=== PATIENT | male | born 1950 | race Caucasian/White ===

== ENCOUNTER → 2020-10-02 14:01 | Outpatient (CLI) | payer MEDICARE, SELFPAY ==
--- NOTE | 2020-10-02 14:46 | DI.CT.S_ITS ---
PROCEDURE: CT UE RT WO CON INDICATIONS: Primary osteoarthritis, right shoulder TECHNIQUE: Noncontrast 1-1.5 mm thick sections acquired from the acromioclavicular joint to the inferior scapula, with coronal and sagittal reformatting. COMPARISON: None. FINDINGS: Image quality: Excellent. Bones: Mild to moderate acromioclavicular joint osteoarthritic changes are seen with joint space narrowing, subchondral sclerosis and cyst formation and small marginal osteophyte formation. Moderate to severe glenohumeral joint osteoarthritis is seen with joint space narrowing, prominent marginal osteophyte formation, subchondral sclerosis and cyst formation. There is no shoulder fracture or dislocation. No suspicious intraosseous lesion. Prominent subcortical cyst formations are noted involving greater tuberosity of humeral head near rotator cuff tendon insertion. Visualized portion of right upper to mid ribs are intact. Soft tissues: There is no gross full-thickness rotator cuff tendon rupture. No significant joint effusion. Mild supraspinatus muscle atrophy is likely present. No abnormal soft tissue calcification is seen. Visualized right lung field is clear. IMPRESSION: 1. Moderate to severe glenohumeral joint osteoarthritis and mild to moderate acromioclavicular joint osteoarthritis. No fracture or dislocation. Prominent subcortical cyst formation in posterior lateral portion of humeral head near rotator cuff tendon insertion. 2. No full-thickness rotator cuff tendon rupture. Very mild supraspinatus muscle atrophy. No abnormal soft tissue calcifications. No significant joint effusion. Dictated by: Ernesto Shah M.D. on 10/02/2020 at 17:21 Approved by: Ernesto Shah M.D. on 10/02/2020 at 17:24
== END ==
PROVIDERS: PCP Student in an Organized Health Care Education/Training Program; Referring Provider Orthopaedic Surgery; Visit Provider Orthopaedic Surgery
DX: M19.011 Primary osteoarthritis, right shoulder (principal)
CPT/HCPCS: 73200

== ENCOUNTER → 2020-11-07 08:22 | Outpatient (CLI) | payer MEDICARE, SELFPAY ==
[2020-11-07 09:47] LABS: Add Manual Diff / Slide Review NO; Basophils Absolute Auto 0 /uL (0-100); Basophils Percent Auto 0.4 % (0-2); Eosinophils Absolute Auto 200 /uL (0-450); Eosinophils Percent Auto 2.9 % (2-4); Hematocrit 40.6 % (41-53); Hemoglobin 13.9 g/dL (13.5-17.5); Lymphocytes Absolute Auto 1400 /uL (1100-4500); Mean Corpuscular HGB Conc 34.2 % (30-36); Mean Corpuscular Hemoglobin 34.7 PG (26-34); Mean Corpuscular Volume 101.4 fL (80-100); Monocytes Absolute Auto 500 /uL (0-900); Neutrophils Absolute Auto 3200 /uL (1500-7000); Neutrophils Percent Auto 60.7 % (50-75); Platelet Count 189 X10^3/uL (150-400); Red Blood Cell Count 4.01 X10^6/uL (4.5-5.9); Red Cell Distribution Width 12.8 % (11.6-14.8); White Blood Cell Count 5.3 X10^3/uL (4.5-11.0)
[2020-11-07 10:03] LABS: Hemoglobin A1C% w Est Avg Glu 6.1 % (4.0-6.0)
[2020-11-07 10:17] LABS: Blood Urea Nitrogen 15 mg/dL (9-20); Calcium 9.8 mg/dL (8.4-10.2); Carbon Dioxide 32 mmol/L (22-32); Chloride 100 mmol/L (98-107); Estimated Glomerular Filt Rate > 60.0 mL/min (>60); Glucose 115 mg/dL (80-110); HEMOLYSIS < 15 (0-50); Potassium 4.2 mmol/L (3.4-5.1); Sodium 136 mmol/L (137-145)
== END ==
PROVIDERS: PCP Student in an Organized Health Care Education/Training Program; Referring Provider Orthopaedic Surgery; Visit Provider Orthopaedic Surgery
DX: Z01.818 Encounter for other preprocedural examination (principal); R73.9 Hyperglycemia, unspecified; M25.511 Pain in right shoulder; Z01.812 Encounter for preprocedural laboratory examination
CPT/HCPCS: 36415; 80048; 83036; 85025; 93005; 93010

== ENCOUNTER → 2020-12-02 10:04 | Outpatient (CLI) | payer MEDICARE, SELFPAY ==
[2020-12-02 11:52] LABS: COVID19 -Nasal RAPID Negative (Negative)
== END ==
PROVIDERS: PCP Student in an Organized Health Care Education/Training Program; Visit Provider Physician Assistant
DX: Z01.812 Encounter for preprocedural laboratory examination (principal); Z20.822 Contact with and (suspected) exposure to COVID-19
CPT/HCPCS: 87635; C9803

== ENCOUNTER 2020-12-04 09:57 | Day surgery (SDC) | payer MEDICARE, SELFPAY ==
[2020-11-28 08:31] VITALS: BMI 29.1
[2020-12-04] VITALS (14 sets, daily range): BP systolic 99–140; BP diastolic 65–89; PULSE 51–87; RESP 13–18; TEMP 35.9–37.1; O2SAT 90–98; BMI 29.1
--- NOTE | 2020-12-04 06:30 | DI.RAD.S_ITS ---
PROCEDURE: XR SHOULDER RT 1V INDICATIONS: post op total shoulde TECHNIQUE: Single views of the shoulder were acquired. COMPARISON: [facility] [place], CR, XR SHOULDER 2+ VIEWS RIGHT, 09/21/2020, 13:34. FINDINGS: Bones: Right shoulder arthroplasty hardware in expected alignment. The hardware appears intact. No acute fracture identified. Soft tissues: Expected postsurgical sequela. IMPRESSION: Expected postoperative appearance Dictated by: Surjit James M.D. on 12/04/2020 at 15:50 Approved by: Surjit James M.D. on 12/04/2020 at 15:52
[2020-12-04] MEDS: ACETAMINOPHEN 325 MG TABLET 975 MG PO (12:18)
[2020-12-04] MEDS: CELECOXIB 200 MG CAPSULE PO (12:19)
[2020-12-04] MEDS: PREGABALIN 75 MG CAPSULE PO (12:19)
[2020-12-04] MEDS: LACTATED RINGERS 1,000 ML 42 ML IV ×2 (12:23→13:39)
--- NOTE | 2020-12-04 12:25 | PM.PREOP ---
Pre-operative Note COVID-19 COVID-19 status: Negative Result date/Date tested (Pos, Neg/Pending): 12/02/20 Interval Note History & Physical reviewed/Exam performed by Physician: Yes Changes to H&P: No
--- NOTE | 2020-12-04 13:10 | SUR.PREOP ---
Block start time [1300] . Monitoring initiated and maintained throughout procedure. Oxygen and medications given per Dr Stewart anesthesiologist instructions. Patient remained stable throughout procedure, no adverse reactions noted. Block end time [1308].
[2020-12-04] MEDS: TRANEXAMIC ACID 1,000 MG VIAL 1000 MG INJ ×2 (13:25→14:50)
[2020-12-04] MEDS: BUPIVACAINE 0.25% (PF) VIAL 30 ML INJ (13:41)
[2020-12-04] MEDS: CEFAZOLIN 1 GM VIAL 2 GM IV (13:42)
--- NOTE | 2020-12-04 13:44 | SUR.OPER ---
Beach chair with Faustino/Wendy shoulder positioner. Lower body on padded OR bed. Head in foam padded head cradle, secured with straps. Non-operative arm secured <90 degrees abduction. Pillow under knees. Safety belt at thigh. Cloth tape over blanket over lower legs.
--- NOTE | 2020-12-04 13:48 | PM.PROC.1 ---
Procedures Date/Time Date of procedure: 12/04/20 Time of procedure: 13:00 General Procedure description: Ultrasound guided interscalene brachial plexus nerve block for post op pain control after right shoulder arthroplasty by Dr. Velázquez. Risk and benefits of procedure discussed with patient. ASA monitoring applied to patient. O2 given via nasal cannula. 2 mg Versed and 50 mcg fentanyl given for procedural sedation. Skin site was prepped with chlorhexidine and allowed to fully dry. Sterile gloves, mask, hat and probe cover were used to maintain sterility. 2% lidocaine and 30ga needle was used to make a small skin wheal at needle insertion site. Under ultrasound guidance, a 21ga 50mm Pajunk needle was directed into the interscalene groove (middle/anterior scalenes) near the brachial plexus. Patient reported no parasthesias. After negative aspiration, 20 mL 0.5% ropivicaine and 10mg dexamethasone were injected around brachial plexus. Patient tolerated procedure well.
[2020-12-04] MEDS: THROMBIN (RECOMBINANT) 5,000 UNIT VIAL 5000 UNIT TOP (14:15)
--- NOTE | 2020-12-04 15:10 | P.OP_ITS ---
Operative Date/Time/Diagnoses Date of procedure: 12/04/20 Time of procedure: 15:10 Pre-op diagnosis: Right shoulder osteoarthritis Post-op diagnosis: same Procedure & Clinicians Procedure: Right total shoulder replacement Same procedure as scheduled: Yes Indications: The patient has had progressively worsening right shoulder pain with radiographic changes consistent with arthritis. Non-operative management has failed and the patient has requested total shoulder replacement. The risks, benefits and alternatives to surgery were discussed with the patient prior to proceeding. Risks discussed included, but were not limited to, failure to relieve pain, stiffness, infection, nerve damage, deep venous thrombosis, pulmonary embolism, stroke, coma, heart attack, permanent paralysis and , as well as the potential need for eventual revision of the prosthetic. Surgeon: William Velázquez [employer] Custodian: Jhonny Cheng Click Yes if Unassisted: No Anesthesia Type: General, Peripheral nerve block and Local Operative Notes Findings: Moderately severe osteoarthritis of the glenohumeral joint with eburnation of both the glenoid and the humeral head. There was a moderate B2 m orphology glenoid. This was addressed by high side reaming. Closure Type: primary Specimen(s): none sent Prosthetic devices, grafts, tissues, transplants, or devices: Implants used in this procedure were manufactured by the [employer] and included an eclipse stem was total shoulder system with a 47/20 humeral head, a 47 mm trunion, a medium cage screw, and a large [employer] VaultLock glenoid. In addition a Speed Bridge anchor system was used to repair the subscapularis. Applied: implant(s) Estimated Blood Loss (mL): 100 Blood products transfused: none Procedure in detail: The patient was seen in the pre-operative area, where the patient identified the right shoulder as the operative site and this was marked with my initials. The patient received pre-operative antibiotics, underwent an interscalene block, and was taken to the operating room and placed on the operative table in the supine position. After satisfactory anesthesia, a full ?time out? was performed. The patient was repositioned in the ?beach chair? position using a dedicated positioner. All pressure points were well padded, and the knees were slightly bent to prevent tension on the sciatic nerves. The right arm was prepared from the fingers to the base of the neck with ChloroPrep in the usual fashion and draped through sterile drapes. An approximately 15 cm incision was created, starting at the clavicle above the coracoid process and extended towards the deltoid insertion. The deltopectoral interval was used to access the shoulder. The cephalic vein was taken laterally. A self retaining retractor was placed. The upper centimeter of the pectoralis major tendon was released. The ?three sisters? were identified and cauterized. The axillary nerve was palpated and protected throughout the case. The biceps was released from its groove and tenodesed over the top of the pectoralis major tendon. The subscapularis was released from the lesser tuberosity with a subscapularis peel and tagged for later repair. The shoulder was dislocated and a cutting guide was used for the proximal humeral osteotomy in 30 degrees of retroversion. The proximal humerus was sized screw site was scored with the appropriate device. The depth gauge was used to determine the length of the cage screw. A proximal humeral protector was then placed. We then removed the self-retaining retractor and placed retractors to access the glenoid. The subscapularis was released with a ?360 degree release? with care being taken to protect the axillary nerve with the inferior portion of this procedure. The remnant of labrum and biceps stump were removed. The appropriate size reamer was chosen with the glenoid sizer, and the guide pin placed. The tip of the pin was palpated leaving the fossa in the scapula in the appropriate position. The glenoid was appropriately reamed. The guide for the peripheral holes was used and the center hole enlarged. The trial glenoid was placed with good stability. We then cemented the final implant into place after irrigating the peg holes and drying them with thrombin-soaked Gelfoam. We returned our attention to the humerus. The final trunion was impacted into position. The cage screw was tightened through the trunnion with excellent district superintendent. A trial humeral head was applied. Stability was checked with 45? external rotation at the side with the subscapularis held in the repaired position, 50% posterior translation with spontaneous reduction. And 70? internal rotation in the ?scarecrow position?. This was felt to be satisfactory and the appropriate implants were opened. The guide for anchor placement was then applied to the neck of the trunion. The awl holes for the anchors were created using the guide to avoid the cage screw. The humeral head was impacted into position. The joint was relocated in irrigated with sterile saline. The suture tapes and the retention sutures were placed through the subscapularis medially in its anatomic position. The superior edge of the subscapularis was approximated to the leading supraspinatus with a [id number] Ethibond suture to close the lateral aspect of the rotator interval. The lateral anchors were t hen placed to complete the speed bridge. The retention sutures medially were then tied to provide additional medial row compression. The deltopectoral interval was closed with interrupted 0 Vicryl. The subcutaneous layer was closed with 3-0 Vicryl, and the skin with a running 3-0 V-Lock suture and Dermabond. An Aquacel Ag dressing was applied, the patient?s arm was placed in a sling, and the patient was taken to recovery having tolerated the procedure well. Complications: none Post-operative Condition: stable Disposition: PACU Plan for aftercare: The patient will be maintained on a standard total shoulder protocol. It is late in the afternoon of the completion of his surgery and he will be maintained in the hospital until tomorrow to allow him to recover from his anesthetic prior to discharge.
[2020-12-04] MEDS: fentaNYL 100 MCG/2 ML INJ IV (15:49)
[2020-12-04] MEDS: LACTATED RINGERS 1,000 ML 100 ML IV (17:26)
[2020-12-04] MEDS: IBUPROFEN 400 MG TABLET PO ×2 (17:30→21:01)
[2020-12-04] MEDS: OXYCODONE IR 5 MG TABLET PO ×2 (17:31→22:58)
[2020-12-04] MEDS: TRAZODONE 50 MG TABLET PO (21:00)
[2020-12-04] MEDS: ACETAMINOPHEN 325 MG TABLET 650 MG PO (21:00)
[2020-12-04] MEDS: ASPIRIN EC 81 MG TABLET PO (21:00)
[2020-12-04] MEDS: DIVALPROEX ER 250 MG TAB 500 MG PO (21:01)
[2020-12-04] MEDS: atenoloL 25 MG TABLET PO (21:02)
[2020-12-04] MEDS: ATORVASTATIN 20 MG TABLET 10 MG PO (21:02)
--- NOTE | 2020-12-04 21:39 | PC.NURSE ---
Pt A/O, Lungs clear, SpO2 97% RA R shoulder aquacell CDI, arm in sling. IVF LR infusing @ 100cc/hr via pump into LAC w/o incidence. Stable post op course.. Call light w/in reach, bed alarm on for pt safety. Continue w/plan of care
[2020-12-05] MEDS: IBUPROFEN 400 MG TABLET PO ×3 (00:47→08:17)
[2020-12-05] MEDS: OXYCODONE IR 5 MG TABLET PO ×4 (01:37→11:02)
[2020-12-05] MEDS: LACTATED RINGERS 1,000 ML 100 ML IV (03:08)
[2020-12-05 05:24] VITALS: BP 122/74; PULSE 53; RESP 16; TEMP 36.4; O2SAT 94
[2020-12-05 06:51] LABS: Hematocrit 34.6 % (41-53); Hemoglobin 12.1 g/dL (13.5-17.5)
--- NOTE | 2020-12-05 07:45 | PM.DS.1 ---
History of Present Illness History of Present Illness Date Patient Seen: 12/05/20 Time Patient Seen: 07:45 Chief complaint: Right Total Shoulder Arthroplasty *OPB* Narrative: The history and physical is contained in the chart in a previously completed note. Please refer to that note for this information. Discharge Providers Provider Discharge Date: 12/05/20 Primary care physician: Celina Ramirez PA-C Consults: 12/04/20 16:16 Consult to Discharge Planning Routine Comment: Consult to Physical Therapy Evaluate & Treat Comment: Physician Instructions: pendulums, PROM 90 FF, 0 ER, 0 Abd, IR to body Discharge provider: William Velázquez MD Summary Hospital Course Discharge Diagnosis: 1. Right shoulder osteoarthritis 2. Post hemorrhagic anemia Hospital Course: The patient was admitted to the hospital and taken directly to the operating room on December 04, 2020. He underwent a right total shoulder replacement for osteoarthritis. He tolerated this procedure well. On postoperative day 1 he had excellent pain control. His block was in completely worn off at the time of my examination. It is felt that he will be ready for discharge today. He has a mild post hemorrhagic anemia which will not require specific treatment. Status at Discharge Cognitive/behavioral status at discharge: oriented Functional status at discharge: independent ambulation Overall status at discharge: patient is progressing back to baseline Time Spent with Patient Time spent: Less than 30 minutes Exam Vital Signs (past 8 hours): - 12/05/20 05:24 Temperature 97.5 F L Pulse Rate 53 L Respiratory Rate 16 Blood Pressure 122/74 Pulse Oximetry 94 Oxygen Delivery Method Room Air Oxygen Flow Rate 0 Narrative Exam Narrative: Right shoulder wound is dressed with no drainage on the bandage. Light touch is slightly reduced in the axillary nerve distribution and intact in the radial, ulnar, median, and muscular cutaneous distribution. He can extend his thumb, abduct his thumb, abduct his fingers and fire his deltoid. He has difficulty firing his biceps. Objective Labs Result Diagrams: 12/05/20 06:37 Labs: Laboratory Results - last 24 hr 12/05/20 06:37 Hgb 12.1 L Hct 34.6 L PFSH Medical History (Updated 11/28/20 @ 09:26 by Valorie Barreto RN) Anxiety Closed head injury HLD (hyperlipidemia) HTN (hypertension) Illness (~06/2019) Insomnia Osteoarthritis Pneumonia Prediabetes Thinning of skin Surgical History (Updated 11/28/20 @ 09:41 by Valorie Barreto RN) History of colonoscopy Hx of arthroscopy of right knee (~1979) Hx of cholecystectomy Hx of tonsillectomy Social History household members: spouse Smoking Status: Current every day smoker alcohol intake: current Discharge Assessment & Plan Assessment and Plan Assessment: Stable postoperative day 1 status post right total shoulder replacement. He has a mild post hemorrhagic anemia which should not require specific treatment. He is stable for discharge home. Plan of Treatment: Discharge home with follow-up in 2 weeks. Discharge prescriptions for oxycodone have been sent to his pharmacy. Instructions for the use of Tylenol and ibuprofen for pain control and low-dose aspirin for DVT prophylaxis of also been given. Discharge Plan Discharge Plan Patient Disposition: Home Discharge orders & Medications Discharge Orders: Discharge (Order); Ordered 12/05/20 Ordered By: William Velázquez Prescriptions: New acetaminophen 325 mg Tablet 650 mg PO TID 30 Days Qty: 180 RF: 0 aspirin 81 mg Tablet,Delayed Release (Dr/Ec) 81 mg PO BID 42 Days Qty: 84 RF: 0 ibuprofen 400 mg Tablet 400 mg PO Q4HR 30 Days RF: 0 oxycodone 5 mg Tablet 5 mg PO Q4H PRN (Reason: Pain, Moderate (4-6)) Qty: 40 RF: 0 Continued losartan 50 mg Tablet 50 mg PO DAILY RF: 0 trazodone 50 mg Tablet 50 mg PO BEDTIME RF: 0 atorvastatin 10 mg Tablet 10 mg PO BEDTIME RF: 0 atenolol 25 mg Tablet 25 mg PO BEDTIME RF: 0 triamterene-hydrochlorothiazid 37.5-25 mg Capsule 1 cap PO DAILY RF: 0 divalproex 500 mg Tablet Extended Release 24 Hr 500 mg PO BEDTIME RF: 0 metformin 500 mg Tablet Extended Release 24hr 500 mg PO DAILY RF: 0 naproxen sodium [Aleve] 220 mg Capsule 220 mg PO DAILY RF: 0 Follow up/Referrals: Celina Ramirez PA-C [Primary Care Provider] - William Velázquez MD [Physician] - 2 Weeks Diet/Activity/Treatments Diet: Diet as Tolerated and Carb-consistent/Diabetic Activity: You may use your right arm in front of your body below shoulder level. Lift no more than 1-2 lb with your right arm. Cold/Heat Therapy: You may apply ice to the right shoulder for 15 minutes every hour as needed for pain control. Skin/Wound/Dressing Care Report to your healthcare provider any signs of infection, such as:: chills, fever, night sweats, increased pain, unusual drainage and unusual redness Dressing: Leave the dressing intact until your follow-up appointment. You may shower with the dressing in place. If the central strip of the dressing becomes saturated with either water or blood, please call the office to have it evaluated. Visit Report/Discharge Packet Instructions: DI for Shoulder Replacement Stand Alone Forms: Surgery Discharge Discharge Data Primary Care Provider: Celina Ramirez Attending Provider: William Velázquez
[2020-12-05 08:00] VITALS: BP 123/70; PULSE 50; RESP 15; TEMP 36.6; O2SAT 95
[2020-12-05] MEDS: DOCUSATE 100 MG CAPSULE PO (08:17)
[2020-12-05 08:18] VITALS: BP 123/70; PULSE 50
[2020-12-05] MEDS: LOSARTAN 50 MG TABLET PO (08:18)
[2020-12-05] MEDS: METFORMIN XR 500 MG TABLET PO (08:19)
[2020-12-05] MEDS: ASPIRIN EC 81 MG TABLET PO (08:19)
[2020-12-05] MEDS: TRIAMTERENE/HCTZ 37.5/25 CAPSULE 1 CAP PO (08:19)
--- NOTE | 2020-12-05 09:35 | PT.IIE ---
Current Diagnoses Primary osteoarthritis, right shoulder (12/04/20) Surgery Performed Operation Date: 12/04/20 13:15 Actual Procedures p Total Shoulder Arthroplasty(Right) - William Velázquez MD Surgical History (Last Updated 11/28/20 @ 09:41 by Valorie Barreto, RN) History of colonoscopy Hx of arthroscopy of right knee (~1979) Hx of cholecystectomy Hx of tonsillectomy Medical History (Last Updated 11/28/20 @ 09:26 by Valorie Barreto RN) Anxiety Closed head injury HLD (hyperlipidemia) HTN (hypertension) Illness (~06/2019) Insomnia Osteoarthritis Pneumonia Prediabetes Thinning of skin Physical Therapy Inpatient Evaluation/Re-Eval M1 PT/OT-IP Prior Functional Status Start: 12/05/20 12:33 Freq: NEEDED Status: Active Protocol: Document 12/05/20 09:35 AB (Rec: 12/05/20 12:48 AB [id number]) Medical Review Prior Functional Status Medical History Reviewed Yes Communication able to make needs known Mobility and Gait pt stated that he is independent with all mobilities and ambulation without Ad Social History Household Members spouse Living Arrangements House Number of Floors (Floors) One Floor Number of Stairs To Enter/Railing? no steps to enter from the garage 1 steps to enter from the front Home Environment High Toilet,Walk in Shower, Built-In Shower Seat Home Equipment Hand Held Shower Employment Status Retired Additional Social History Comment pt stated that he can sleep on his recliner M2 PT-IP Current Condition Start: 12/05/20 12:33 Freq: NEEDED Status: Active Protocol: Document 12/05/20 09:35 AB (Rec: 12/05/20 12:48 AB [email or web address]) Physical Therapy Current Condition Current Condition Evaluation Date 12/05/20 Treatment Diagnosis s/p R TSA; difficulty in walking Onset Date 12/04/20 Precautions Shoulder Precautions Sling,PROM,Internal Rotation to Body,No External Rotation, No Abduction,Forward Flexion to 90 degrees,Pendulums Other Precautions pt has shoulder abduction sling Weight Bearing Status Weight Bearing Status Non-Weight Bearing Allowed Weight Bearing Amount (enter % RUE NWB or #) (%) M3 PT-IP Subjective Start: 12/05/20 12:33 Freq: NEEDED Status: Active Protocol: Document 12/05/20 09:35 AB (Rec: 12/05/20 12:48 [id number]) Subjective Physical Therapy Visit Type Type Initial Evaluation Visit Start Time 09:35 Visit Stop Time 10:36 Total Visit Minutes 61 Number of HAND III CUTTER Visits 0 Physical Therapy Visit Comments Patient Comments agreeable to do PT Therapy Pain Assessment Pain When Pain Assessed At Rest Pain Present Pain Present Pain Reported Location RUE Intensity 6 Scale Used Numeric (0 - 10) Pain Management Techniques Apply Cold,Distraction, Modification of Treatment,Re- positioning,Timing of Activity with Medications M4 PT-IP Mobility and Gait Start: 12/05/20 12:33 Freq: NEEDED Status: Active Protocol: Document 12/05/20 09:35 AB (Rec: 12/05/20 12:48 [email or web address]) PT-Bed Mobility Assessment Supine to Sit Supine to Sit Standby Assistance Scooting Scooting to Edge of Bed Standby Assistance Scooting Up and Down in Bed Standby Assistance PT-Transfer Assessment Sit to and From Stand Sit to and from Stand Standby Assistance Equipment Transfer Assistive Device None,Gait Belt Orthotic/Prosthetic Devices or Brace: Yes Transfers Transfer Destination Chair Transfer Technique Stand Step Pivot Transfer Ability Level of Assist Standby Assistance,1 Person Assistance,Use of Upper Extremities Comments Mobility Comments pt supine in bed and spouse in room educated pt and spouse regarding pt's shoulder precautions. pt completed supine to sit SBA. pt able to sit on EOB SBA. educated pt and spouse regarding sling managment, HEP (elbow/hand/ wrist ROM and pendulum), dressing techniques. assisted pt with sling. pt completed exercises but unable to complete pendulum but was able to assume position of UE. educated pt regarding positioning and dressing needs . showed and educated spouse on how to assist pt. spouse assisted pt with sling management and completed. pt ambulated in room without AD SBA with initial unsteadiness but without LOB. pt agreed to ambulate in the hallway and completed ~ 125 ft without AD SBA. completed up/ down platform step x 2 reps CGA for safety as pt can be impulsive and cued to slow down. pt ambulated back to his room. agreed to sit up on chair. call light and table placed within reach. informed nurse regarding pt cleared to d/c. Gait Assessment Gait Gait Assistance Required: Standby Assistance Distance (Feet) 125 Able to Maintain Weight Bearing Status Yes During Gait Assistive Devices Assistive Device None,Gait Belt Orthotic/Prosthetic Devices or Brace: Yes Gait Deviations General Gait Pattern Decreased Stride Length, Decreased Feet Clearance Factors Limiting Gait Function Factors Limiting Gait Function Decreased Activity Tolerance, Decreased Strength,Limited Range of Motion,Pain,Poor Balance Comments Gait Comments pls refer to mobiltiy section for details Stair Climbing Assessment Evaluation Level of Assist On Stairs Standby Assistance,Contact Guard Assistance Devices Stair Climbing Assistive Devices None Technique/Endurance Stair Climbing Direction Ascend and Descend Stair Climbing Technique Step to Step Number of Steps Climbed 1 Query Text: Stair Climbing Set # Repetitions (reps) 2 PT-Balance Assessment Sitting Balance and Reactions Static Sitting Balance Ability Normal Dynamic Sitting Balance Ability Normal Standing Balance and Reactions Static Standing Balance Ability Good Dynamic Standing Balance Ability Good Device Used without AD M5 PT-IP Objective Assessments Start: 12/05/20 12:33 Freq: NEEDED Status: Active Protocol: Document 12/05/20 09:35 AB (Rec: 12/05/20 12:48 AB [email or web address]) Orientation Orientation/Cognition Level of Alertness Alert Orientation Name,Place,Situation Language Function Ability No Deficits Noted Safety Awareness Decreased Safety Awareness Gross Range of Motion Lower Extremity ROM Assessment Within Functional Limits Strength Lower Extremity Strength Assessment Within Functional Limits Sensation Assessment Sensation Gross Sensation WNL Muscle Tone Muscle Tone WNL Yes M6 PT-IP Treatment Start: 12/05/20 12:33 Freq: NEEDED Status: Active Protocol: Document 12/05/20 09:35 AB (Rec: 12/05/20 12:48 AB [email or web address]) Physical Therapy Treatment Education Education Provided Precautions,Weight Bearing Status,Post-Op Packet,Safety M7 PT-IP Assessment and Plan Start: 12/05/20 12:33 Freq: NEEDED Status: Active Protocol: Document 12/05/20 09:35 AB (Rec: 12/05/20 12:48 AB [email or web address]) PT Summary Assessment and Plan Potential Rehabilitation Potential Good Status of Condition at Evaluation Stable Summary Impairments Pain,ROM,Strength,Balance, Coordination,Sensation,Bed Mobility,Transfers,Gait, Activity Tolerance Assessment Summary pt requiring SBA with mobility with occasional cues for safety. caregiver training conducted and spouse is able to assist pt. pt plans to go home today. pt may go home when medically stable. Goals Bed Mobility Goal Independent Transfer Goal Independent Gait Goal Independent Gait Distance 200 Other Goals up/down 1 steps mod I Days to Meet Goals 3 Frequency of Treatment Frequency Of Treatment Twice a Day Treatment Plan Physical Therapy Treatment Plan Bed Mobility Training,Transfer Training,Gait Training, Therapeutic Exercise,Balance Retraining,Post Op Education, Discharge Planning,Hot or Cold Pack,Neuromuscular Re-ed, Coordination Retraining,Manual Therapy Precautions Shoulder Precautions Sling,PROM,Internal Rotation to Body,No External Rotation, No Abduction,Forward Flexion to 90 degrees,Pendulums Other Precautions NWB RUE Recommendations To Nursing Amount of Assist Needed Standby Assistance Discharge Recommendations PT Discharge Recommendations Home with Assistance, Outpatient PT Transportation Needs at Discharge Private Vehicle
[2020-12-05] MEDS: ACETAMINOPHEN 325 MG TABLET 650 MG PO (11:02)
--- NOTE | 2020-12-05 11:05 | PC.NURSE ---
Patient educated about diet, activity, ss of infection, ss of stroke, when to follow up with Dr. Velázquez and new medications. Patient and verbalized understanding to all discharge teaching and all questions were answered. Prescriptions were electronically sent to pharmacy. Patient left facility with all belongings via wheelchair to private vehicle.
--- NOTE | 2020-12-05 11:06 | CM.DANOTE ---
Addendum entered by HOLLIS Wan 12/05/20 15:16: ADD: Per PT, recommending safe d/c home with assist and outpt PT. Ortho discharged pt home with outpt follow up and no identified barriers to discharge. Spouse provided transport home. BF Original Note: Patient is a 70 year old male who was admitted on 12/04/20 for Right Total Shoulder. Pt has [facility] for insurance and his PCP is Celina Ramirez. EMR was reviewed. Per Ortho MD, pt tolerated procedure well and to work with PT today and possible d/c home later pending PT. SW met bedside with pt and spouse and explained role and pt very pleasantly talkative and confirms he lives at home in [place] with his and they are quite active and independent at baseline and walk their dog daily for a mile or two. Pt drives and does not use DME and no hx of HH or SNF but many years ago had gallbladder surgery and a knee procedure but able to d/c home with spouse assist. Pt has no hx of prior admission to [facility]. Pt and spouse anticipate likely d/c home today after PT and they are agreeable with discharge and spouse can transport and provide assist at home. Plan: SW to follow for PT eval and recommendations towards likely plan of d/c home with spouse later today if stable. HOLLIS Wan Discharge Planning/Care Management CM Discharge Assessment Start: 12/05/20 11:05 Freq: Status: Active Protocol: Document 12/05/20 11:05 (Rec: 12/05/20 11:06 [id number]) Discharge Planning Assessment Assigned Interactive Producer HOLLIS Canales DPOA/Assigned Designee Name Spouse Radha Contact Information [phone] Advance Directives? Yes Advance Directives on File No History Provided By Patient,Significant Other, Medical Record Has Patient been admitted in last 30 No days? Prior Living Arrangements House Household Members spouse Type of transporation used prior to Drives own vehicle admit Independent with ADL's Yes Is patient alert and oriented? Yes Caregiver for Another No Community Services used prior to Physical Therapy admission: Patient/Family Preference OP PT Therapy Barriers to Discharge No Discharge Plan Home Transportation Arrangement Spouse bedside and plans to transport at d/c Referrals Initiated None needed Whiteboard Updated in Patient Room with Yes name and ext. # of Interactive Producer Review Status In Process Please Provide Date Initial DC 12/05/20 Assessment Was Performed Next Review Type Continued Stay Review Pre-Anesthesia Assessment Start: 11/28/20 08:31 Freq: Status: Complete Protocol: Document 11/28/20 08:31 CAB (Rec: 11/28/20 09:39 CAB [id number]) Pre-Anesthesia Assessment PAC Comment Pt nervous about surgery Patient Information Reviewed Via Phone Assessment Assessment Completed With Patient H&P Completed Within 30 Days Yes Diagnostic Results BMP/CMP,CBC,EKG Comment Labs/EKG @ [facility] 11/07/20 COVID screen @ [facility] 12/02/20 Primary Care Provider Celina Ramirez Seen Specialist in Last 12 Months Yes Specialist Seen Spiral Gear Generator,Opthamologist/ French Folding Machine Operator,Orthopedist,Other Primary Language [place]ib[place]ian Copy Director Required No Height 177.8 cm Weight 92.079 kg Body Mass Index (BMI) 29.1 Hearing Ability Normal Visual Assist Glasses Dentition Type Teeth, Natural Present Barriers to Learning None Hx Anesthesia Reactions No Hx Family Anesthesia Reaction No Hx Malignant Hyperthermia No Hx Blood Transfusions No Anesthesia Review Requested No alcohol intake current alcohol intake frequency 0-2 drinks per day Smoking Status Current every day smoker Tobacco type cigars Substance Use Type does not use Pain Present Pain Reported Musculoskeletal Symptoms Joint Pain,Limited Range of Motion,Radiating Pain into Limb History of Falling (Recent or History of No ) Patient is completely paralyzed or No completely immobile Mental Status Oriented to own ability Is patient on oxygen? No Hx Sleep Apnea No Currently Taking a Beta Shawn Yes: Atenolol Can You Climb a Flight of Stairs Without Yes SOB Hx Chest Pain No Hx SOB No Hx Syncope or Dizziness No Anti-Coagulant Therapy No Has a Line Maintainer No Cardiac Testing No Hx Pacemaker/ICD No Pacemaker Rep Required? No Cardiac Clearance Received Not Applicable Diet Type At Home Regular dysphagia No Urinary Catheter Present No Hx Urinary Self Catheterization No Diabetes No: Pre-diabetes HgbA1C 6.1 Date 11/07/20 Hx Drug Resistant Organism No Presence of External or Internal Medical No Devices Have you had any close contact with No someone diagnosed with COVID-19? Marital Status Lives With spouse Prior Living Arrangements House Number of Floors (Floors) One Floor Support System Spouse Does the Patient Have Assistance After Yes Surgery Patient Discharge Plan Description Return Home Comment Pt advised overnight length of stay per surgeon Feels Safe in Current Environment Yes Been Physically Hurt or Threatened By a No Person in Current Environment Do you have thoughts of harming yourself None or others? Are you currently considering suicide? No Do you have a plan to hurt yourself or No Plan others? Do You Have Any Spiritual Beliefs That No May Affect Your HC Choices? Do You Have Any Cultural Practices That No May Affect Your HC Choices? Comment Druze Who Can We Speak to About Patient's Care Family, friends Identifying Code for Release of Patient Declines to issue Information Health Care Proxy/Next of Kin Radha () Health Care Proxy Emergency Contact Name Radha () Emergency Contact Advance Directives? Yes Advance Directives on File No Requested Patient Bring Advanced Yes Directives DOS Power of Ton Container Shipper Yes Power of Ton Container Shipper Name Radha () Power of Ton Container Shipper PAC Instructions Diabetes instructions,Durable medical equipment,Medications to take/avoid,Nasal antibiotic ,No ETOH/petroleum product on skin DOS,NPO,Post-op transportation,Pre-surgical wash,Sturdy shoes/comfortable clothes,Do not bring valuables and remove jewelry
== END 2020-12-05 11:07 | disposition home or self-care (01) ==
LOC: OR 10:02 → AC 10:03
PROVIDERS: PCP Student in an Organized Health Care Education/Training Program; Referring Provider Orthopaedic Surgery; Visit Provider Orthopaedic Surgery
PROC: 0RQJ0ZZ Repair Right Shoulder Joint, Open Approach (ICD-10-PCS; CPT 23472; principal; 2020-12-04 13:15)
DX: M19.011 Primary osteoarthritis, right shoulder (principal); E78.00 Pure hypercholesterolemia, unspecified; R73.03 Prediabetes; F17.210 Nicotine dependence, cigarettes, uncomplicated; D50.0 Iron deficiency anemia secondary to blood loss (chronic)
CPT/HCPCS: 23472; 36415; 64450; 73020; 85014; 85018; 97161; 97530; C1776; J0690; J1100; J2250; J2405; J2704; J3010

== ENCOUNTER → 2022-08-09 14:31 | Outpatient (CLI) | payer MEDICARE, SELFPAY ==
[2022-08-09 14:31] VITALS: BMI 29.1
[2022-08-09 15:56] LABS: Alanine Aminotransferase 36 IU/L (<50); Albumin 3.9 g/dL (3.5-5.0); Albumin Globulin Ratio 1.7 (1.0-2.8); Alkaline Phosphatase 133 U/L (38-126); Aspartate Aminotransferase 33 IU/L (17-59); BUN Creatinine Ratio 15.5 (6-22); Bilirubin Total 0.6 mg/dL (0.2-1.3); Blood Urea Nitrogen 16 mg/dL (9-20); Calcium 8.8 mg/dL (8.4-10.2); Carbon Dioxide 30 mmol/L (22-32); Chloride 99 mmol/L (98-107); Estimated Glomerular Filt Rate > 60 mL/min (>60); Globulin 2.3 g/dL (1.7-4.1); Glucose 177 mg/dL (80-110); HEMOLYSIS < 15 (0-50); Potassium 3.6 mmol/L (3.4-5.1); Sodium 137 mmol/L (137-145); Total Protein 6.2 g/dL (6.3-8.2)
== END ==
PROVIDERS: PCP Student in an Organized Health Care Education/Training Program; Referring Provider Family Medicine; Visit Provider Family Medicine
DX: U07.1 COVID-19 (principal)
CPT/HCPCS: 36415; 80053

== ENCOUNTER → 2023-05-02 12:07 | Outpatient (CLI) | payer MEDICARE, SELFPAY ==
[2022-08-09 14:31] VITALS: BMI 29.1
[2023-05-02 12:58] LABS: Add Manual Diff / Slide Review NO; Basophils Absolute Auto 0 /uL (0-100); Basophils Percent Auto 0.5 % (0-2); Eosinophils Absolute Auto 100 /uL (0-450); Eosinophils Percent Auto 1.9 % (2-4); Hematocrit 39.6 % (41-53); Lymphocytes Absolute Auto 1500 /uL (1100-4500); Lymphocytes Percent Auto 30.7 % (25-40); Mean Corpuscular HGB Conc 35.2 % (30-36); Mean Corpuscular Hemoglobin 34.1 PG (26-34); Mean Corpuscular Volume 96.7 fL (80-100); Monocytes Absolute Auto 400 /uL (0-900); Neutrophils Absolute Auto 2800 /uL (1500-7000); Neutrophils Percent Auto 57.9 % (50-75); Platelet Count 210 X10^3/uL (150-400); Red Cell Distribution Width 12.5 % (11.6-14.8); White Blood Cell Count 4.8 X10^3/uL (4.5-11.0)
[2023-05-02 13:23] LABS: Hemoglobin A1C% w Est Avg Glu 6.8 % (4.0-6.0)
[2023-05-02 13:37] LABS: BUN Creatinine Ratio 19.2 (6-22); Blood Urea Nitrogen 19 mg/dL (9-20); Calcium 9.7 mg/dL (8.4-10.2); Carbon Dioxide 31 mmol/L (22-32); Chloride 96 mmol/L (98-107); Estimated Glomerular Filt Rate > 60 mL/min (>60); Glucose 113 mg/dL (80-110); HEMOLYSIS < 15 (0-50); Potassium 4.2 mmol/L (3.4-5.1); Sodium 132 mmol/L (137-145)
[2023-05-02 14:40] LABS: Folate > 20.0 ng/mL (2.76-20.0); Vitamin B12 639 pg/mL (239-931)
== END ==
PROVIDERS: PCP Student in an Organized Health Care Education/Training Program; Referring Provider Student in an Organized Health Care Education/Training Program; Visit Provider Student in an Organized Health Care Education/Training Program
DX: U07.1 COVID-19 (principal)
CPT/HCPCS: 36415; 80048; 82607; 82746; 83036; 85025